=== PATIENT | female | born 1955 | race Two or more races ===

== ENCOUNTER → 2019-02-19 | Outpatient (CLI) | payer BC | END | disposition home or self-care (01) | LOC: TOM 07:54 | DX: R10.31 Right lower quadrant pain (principal); K56.60 Unspecified intestinal obstruction ==

== ENCOUNTER 2020-06-10 06:58 | Day surgery (SDC) | payer BC | END 2020-06-10 10:45 | disposition home or self-care (01) | LOC: AMB-ENDOS 06:58 | PROVIDERS: ATTEND Colon & Rectal Surgery | DX: D12.2 Benign neoplasm of ascending colon (principal); D12.5 Benign neoplasm of sigmoid colon; K64.8 Other hemorrhoids; Z20.822 Contact with and (suspected) exposure to COVID-19; Z12.11 Encounter for screening for malignant neoplasm of colon ==